=== PATIENT | female | born 1990 | race Caucasian/White ===

== ENCOUNTER 2021-09-28 04:05 | Inpatient (IN) | payer OTHER ==
[2021-09-28] MEDS ORDERED: DEXTROSE 5%-LACTATED RINGERS 1,000 ML IV SCH (06:30)
[2021-09-28] MEDS ORDERED: AMPICILLIN - 2 GM in SODIUM CHLORIDE 100 ML IVPB ONE (06:30)
[2021-09-28] MEDS ORDERED: AMPICILLIN SODIUM 2 GM VIAL ONE (06:34)
[2021-09-28 06:50] LABS: BASO % 0.9 % (0-2.0); EOS % 0.7 % (0-4.5); HEMOGLOBIN 13.4 GM/dL (10.7-15.3); LYMPH % 16.3 % (8-40); MCH 31.9 pg (25.7-33.7); MCHC 33.4 g/dl (32.0-36.0); MEAN CELL VOLUME 95.5 fl (80-96); MEAN PLT VOLUME 8.7 fl (7.5-11.1); MONO % 4.5 % (3.8-10.2); NEUT % 77.6 % (42.8-82.8); PLATELET COUNT 249 10^3/uL (134-434); RBC 4.19 M/mm3 (3.60-5.2); RDW 13.5 % (11.6-15.6)
[2021-09-28 06:57] LABS: INR 0.88 (0.83-1.09); PROTHROMBIN TIME (PATIENT) 10.1 SEC (9.7-13.0)
[2021-09-28 07:00] LABS: ACTIVATED PTT 28.9 SECONDS (25.2-36.5)
[2021-09-28 07:11] LABS: CALCIUM 9.2 mg/dL (8.5-10.1)
[2021-09-28 07:12] LABS: BLOOD UREA NITROGEN 12.6 mg/dL (7-18)
[2021-09-28 07:15] LABS: CREATININE 0.7 mg/dL (0.55-1.3)
[2021-09-28 07:33] VITALS: BMI 27.6
[2021-09-28 08:59] LABS: POC NITRAZINE NEG
[2021-09-28] MEDS ORDERED: AMPICILLIN SODIUM 1 GM VIAL ONE ×2 (10:30→14:32)
[2021-09-28] MEDS: AMPICILLIN - 1 GM in SODIUM CHLORIDE 100 ML IVPB SCH ×3 (10:35→18:42)
[2021-09-28 10:47] LABS: HIV INTERPRETATION NEGATIVE (NEGATIVE)
[2021-09-28] MEDS ORDERED: OXYTOCIN 20 UNITS in 0.9% NS 20 UNIT/1,000 ML INFUS.BAG IV ONE ×2 (14:55→17:22)
[2021-09-28] MEDS ORDERED: LIDOCAINE HCL 1% PRESERVATIVE FREE - 30ML VIAL ONE (14:55)
[2021-09-28] MEDS ORDERED: oxyCODONE HCL 5 MG TABLET PO PRN (15:28)
[2021-09-28] MEDS ORDERED: BISACODYL 10 MG SUPP.RECT RC PRN (15:28)
[2021-09-28] MEDS ORDERED: BENZOCAINE 28 GM HEMORRHOIDAL OINTMENT TP PRN (15:28)
[2021-09-28] MEDS ORDERED: IBUPROFEN 600 MG TABLET (FP) PO PRN (15:28)
[2021-09-28] MEDS ORDERED: METHYLERGONOVINE MALEATE 0.2 MG/1 ML AMP IM PRN (15:28)
[2021-09-28] MEDS ORDERED: ACETAMINOPHEN 325 MG TABLET (FP) PO PRN (15:28)
[2021-09-28] MEDS ORDERED: BENZOCAINE 20% 57 GM BOTTLE TP PRN (15:28)
[2021-09-28] MEDS ORDERED: WITCH HAZEL 50% (TUCKS) 40 PAD/JAR PAD TP PRN (15:28)
[2021-09-28] MEDS ORDERED: OXYTOCIN 20 UNITS in 0.9% NS 20 UNIT/1,000 ML INFUS.BAG IV SCH (15:30)
[2021-09-29 09:31] LABS: BASO % 0.2 % (0-2.0); EOS % 0.3 % (0-4.5); HEMATOCRIT 32.6 % (32.4-45.2); LYMPH % 14.4 % (8-40); MCH 32.1 pg (25.7-33.7); MCHC 33.9 g/dl (32.0-36.0); MEAN CELL VOLUME 94.6 fl (80-96); MEAN PLT VOLUME 8.5 fl (7.5-11.1); MONO % 4.1 % (3.8-10.2); PLATELET COUNT 223 10^3/uL (134-434); RBC 3.44 M/mm3 (3.60-5.2); RDW 13.5 % (11.6-15.6); WHITE BLOOD COUNT 12.5 K/mm3 (4.0-10.0)
[2021-09-29] MEDS: PRENATAL VITAMINS W/ FOLIC ACID TABLET (FP) PO SCH (09:40)
[2021-09-29] MEDS ORDERED: DIPHTH,PERTUSS(ACELL),TET 0.5 ML DISP.SYRIN IM ONE (14:00)
[2021-09-29] MEDS ORDERED: SENNOSIDES/DOCUSATE COMBO (SENNA PLUS) TABLET (UD) PO PRN (22:00)
[2021-09-30] MEDS ORDERED: diphenhydrAMINE HCL 25 MG CAPSULE (FP) PO PRN (00:55)
[2021-09-30 09:27] VITALS: BP 136/80; PULSE 82; RESP 17; TEMP 98.2
[2021-09-30] MEDS: PRENATAL VITAMINS W/ FOLIC ACID TABLET (FP) PO SCH (10:32)
== END 2021-09-30 14:10 | disposition home or self-care (01) | DRG 807 ==
LOC: EDBD 04:05 → JDEL 04:05 → JLDR 05:50 → J3W 18:00
PROVIDERS: ADMIT Obstetrics & Gynecology; ATTEND Obstetrics & Gynecology
PROC: 0HQ9XZZ Repair Perineum Skin, External Approach (ICD-10-PCS; principal; 2021-09-28)
PROC: 10E0XZZ Delivery of Products of Conception, External Approach (ICD-10-PCS; 2021-09-28)
DX: O70.0 First degree perineal laceration during delivery (principal); Z37.0 Single live birth; Z3A.38 38 weeks gestation of pregnancy
CPT/HCPCS: 36415; 59409; 80048; 83986-QW; 85025; 85610; 85730; 86780; 86850; 86900; 86901; 87389; C9803-CS; U0003; U0005

== ENCOUNTER 2024-02-26 05:15 | Inpatient (IN) | payer OTHER ==
[2024-02-26 06:30] VITALS: BMI 28.7
[2024-02-26] MEDS ORDERED: AMPICILLIN SODIUM 2 GM VIAL ONE (06:40)
[2024-02-26] MEDS: ELECTROLYTE-148 SOLN 1,000 ML IV SCH (06:41)
[2024-02-26] MEDS: AMPICILLIN - 2 GM in SODIUM CHLORIDE 100 ML IVPB ONE (06:43)
[2024-02-26 07:10] LABS: BASO % 0.4 % (0-2.0); HEMATOCRIT 32.5 % (32.4-45.2); HEMOGLOBIN 10.8 GM/dL (10.7-15.3); LYMPH % 25.2 % (8-40); MCHC 33.1 g/dl (32.0-36.0); MEAN CELL VOLUME 87.6 fl (80-96); MONO % 6.2 % (3.8-10.2); NEUT % 66.2 % (42.8-82.8); PLATELET COUNT 236 10^3/uL (134-434); RBC 3.71 M/mm3 (3.60-5.2); RDW 14.1 % (11.6-15.6); WHITE BLOOD COUNT 8.2 K/mm3 (4.0-10.0)
[2024-02-26 07:17] LABS: POTASSIUM 3.7 mmol/L (3.5-5.1)
[2024-02-26 07:19] LABS: CALCIUM 9.1 mg/dL (8.5-10.1)
[2024-02-26 07:20] LABS: ALBUMIN 2.6 g/dl (3.4-5.0); BLOOD UREA NITROGEN 10.8 mg/dL (7-18)
[2024-02-26 07:23] LABS: CREATININE 0.8 mg/dL (0.55-1.3)
[2024-02-26 07:24] LABS: BILIRUBIN,TOTAL 0.4 mg/dL (0.2-1)
[2024-02-26 07:25] LABS: TOT PROT 6.7 g/dl (6.4-8.2)
[2024-02-26 07:25] LABS: INR 0.92 (0.83-1.09); PROTHROMBIN TIME (PATIENT) 10.4 SEC (9.7-13.0)
[2024-02-26 07:28] LABS: ACTIVATED PTT 27.1 SECONDS (25.2-36.5)
[2024-02-26] MEDS ORDERED: OXYTOCIN 20 UNITS in 0.9% NS 20 UNIT/1,000 ML INFUS.BAG IV ONE ×2 (08:21→10:25)
[2024-02-26] MEDS: OXYTOCIN 20 UNITS in 0.9% NS 20 UNIT/1,000 ML INFUS.BAG IV SCH (08:35)
[2024-02-26] MEDS ORDERED: IBUPROFEN 600 MG TABLET (FP) PO PRN (08:48)
[2024-02-26] MEDS ORDERED: WITCH HAZEL 50% (TUCKS) 40 PAD/JAR PAD TP PRN (08:48)
[2024-02-26] MEDS ORDERED: oxyCODONE HCL 5 MG TABLET PO PRN (08:48)
[2024-02-26] MEDS ORDERED: BENZOCAINE 28 GM HEMORRHOIDAL OINTMENT TP PRN (08:48)
[2024-02-26] MEDS ORDERED: ACETAMINOPHEN 325 MG TABLET (FP) PO PRN (08:48)
[2024-02-26] MEDS ORDERED: METHYLERGONOVINE MALEATE 0.2 MG/1 ML AMP IM PRN (08:48)
[2024-02-26] MEDS ORDERED: BISACODYL 10 MG SUPP.RECT RC PRN (08:48)
[2024-02-26] MEDS ORDERED: BENZOCAINE 20% 57 GM BOTTLE TP PRN (08:48)
[2024-02-26 09:44] LABS: HIV INTERPRETATION NEGATIVE (NEGATIVE)
[2024-02-26] MEDS ORDERED: FERROUS SO4 325 MG TABLET (FP) ONE (10:12)
[2024-02-26] MEDS: PRENATAL VITAMINS W/ FOLIC ACID TABLET (FP) PO SCH (10:15)
[2024-02-26] MEDS ORDERED: AMPICILLIN - 1 GM in SODIUM CHLORIDE 100 ML IVPB SCH (10:45)
[2024-02-27 02:14] VITALS: RESP 18
[2024-02-27 07:19] LABS: BASO % 0.1 % (0-2.0); HEMATOCRIT 28.7 % (32.4-45.2); HEMOGLOBIN 9.6 GM/dL (10.7-15.3); LYMPH % 16.6 % (8-40); MCH 29.4 pg (25.7-33.7); MCHC 33.5 g/dl (32.0-36.0); MEAN CELL VOLUME 87.7 fl (80-96); MEAN PLT VOLUME 8.9 fl (7.5-11.1); NEUT % 78.3 % (42.8-82.8); PLATELET COUNT 200 10^3/uL (134-434); RBC 3.27 M/mm3 (3.60-5.2); RDW 14.6 % (11.6-15.6); WHITE BLOOD COUNT 10.9 K/mm3 (4.0-10.0)
[2024-02-27] MEDS: FERROUS SO4 325 MG TABLET (FP) PO SCH (10:27)
[2024-02-27] MEDS: SENNOSIDES/DOCUSATE COMBO (SENNA PLUS) TABLET (UD) PO PRN (21:54)
[2024-02-28 10:07] VITALS: BP 119/76; PULSE 83; TEMP 97.7
== END 2024-02-28 14:30 | disposition home or self-care (01) | DRG 560 ==
LOC: JDEL 05:15 → JLDR 06:10 → J3W 11:35
PROVIDERS: ADMIT Obstetrics & Gynecology; ATTEND Obstetrics & Gynecology
PROC: 10E0XZZ Delivery of Products of Conception, External Approach (ICD-10-PCS; principal; 2024-02-26)
PROC: 0HQ9XZZ Repair Perineum Skin, External Approach (ICD-10-PCS; 2024-02-26)
PROC: 0W8NXZZ Division of Female Perineum, External Approach (ICD-10-PCS; 2024-02-26)
DX: O70.0 First degree perineal laceration during delivery (principal); Z3A.37 37 weeks gestation of pregnancy; Z37.0 Single live birth
CPT/HCPCS: 36415; 59025; 59409; 80053; 85025; 85610; 85730; 86780; 86803; 86850; 86900; 86901; 87340; 87389